=== PATIENT | female | born 2005 | race Two or more races ===

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

== ENCOUNTER 2024-06-09 21:26 | Emergency (ER) | payer OTHER ==
[~2024-06-09] VITALS: Ht 165.1 cm; Wt 84.1 kg
[~2024-06-09 21:26] MED LIST changes: -BENZ-227 PO; +CHOL10002 PO; -GUAIFDM PO; +HYDR-4584 PO; -HYDR-4723 PO; +IBUP-1506 PO; -IBUP-1554 PO; +TEST5GEL17 TP
[2024-06-09 21:39] VITALS: BP 111/64; PULSE 86; RESP 20; TEMP 98.5; O2SAT 100
[2024-06-09] MEDS ORDERED: ACET-3385 PO (21:43)
[2024-06-09] MEDS ORDERED: IBUP-1493 PO (21:43)
== END 2024-06-09 23:21 | disposition left against medical advice (07) ==
LOC: EMS 21:34
DX: R05.9 Cough, unspecified (principal); Z53.21 Procedure and treatment not carried out due to patient leaving prior to being seen by health care provider

== ENCOUNTER 2024-10-12 12:41 | Emergency (ER) | payer SELFPAY ==
[~2024-10-12] VITALS: Ht 165.1 cm; Wt 84.1 kg
[~2024-10-12 12:41] MED LIST changes: +ACET-3385 PO; -CHOL10002 PO; -HYDR-4584 PO; +IBUP-1493 PO; -IBUP-1506 PO; -TEST5GEL17 TP
[2024-10-12 12:52] VITALS: BP 132/73; PULSE 80; RESP 16; TEMP 97.9; O2SAT 100
[2024-10-12] MEDS ORDERED: IBUP-1492 PO (13:33)
== END 2024-10-12 14:14 | disposition home or self-care (01) ==
LOC: EMS 12:41
DX: S46.912A Strain of unspecified muscle, fascia and tendon at shoulder and upper arm level, left arm, initial encounter (principal); W22.8XXA Striking against or struck by other objects, initial encounter; Y93.89 Activity, other specified; Y92.89 Other specified places as the place of occurrence of the external cause; Y99.8 Other external cause status
CPT/HCPCS: 99283